=== PATIENT | male | born 2000 | race Caucasian/White ===

== ENCOUNTER 2021-01-30 00:58 | Inpatient (IN) | payer MEDICAID, OTHER ==
--- NOTE | 2021-01-30 01:35 | ED ---
Psych HPI - General Chief Complaint: Psychiatric Symptoms Stated Complaint: Mental Health Time Seen by Provider: 01/30/21 01:01 Source: patient Mode of arrival: EMS - History of Present Illness MD Complaint: feels depressed -: week(s) History of same: Yes Quality: constant Improves With: none Worsens With: none Context: recent alcohol abuse Associated Symptoms: denies other symptoms - Related Data Previous Rx's Medication Instructions Recorded Levant Carbonate 300 mg PO QAM 30 Days cap 02/03/21 Levant Carbonate 450 mg PO HS 30 Days capsule 02/03/21 Nicotine 14Mg/24Hr Patch [Habitrol] 1 patch TRANSDERM DAILY 30 Days 02/03/21 patch QUEtiapine [SEROquel] 100 mg PO HS 30 Days tab 02/03/21 Allergies Allergy/AdvReac Type Severity Reaction Status Date / Time No Known Allergies Allergy Verified 01/30/21 01:09 Review of Systems ROS Statement: Those systems with pertinent positive or pertinent negative responses have been documented in the HPI. ROS Other: All systems not noted in ROS Statement are negative. Constitutional: Denies: fever, chills Respiratory: Denies: cough, dyspnea Cardiovascular: Denies: chest pain, edema Gastrointestinal: Denies: abdominal pain, vomiting, diarrhea Genitourinary: Denies: dysuria, hematuria Musculoskeletal: Denies: back pain Skin: Denies: rash Neurological: Denies: headache Psychiatric: Reports: depression, suicidal thoughts. Denies: auditory hallucinations, visual hallucinations, homicidal thoughts Past Medical History Past Medical History: No Reported History History of Any Multi-Drug Resistant Organisms: None Reported Past Surgical History: No Surgical Hx Reported Past Psychological History: Bipolar, Depression Smoking Status: Current every day smoker Past Alcohol Use History: Daily Past Drug Use History: Marijuana General Exam Limitations: no limitations General appearance: alert, in no apparent distress Head exam: Present: atraumatic, normocephalic Eye exam: Present: normal appearance. Absent: scleral icterus, conjunctival injection Neck exam: Present: normal inspection Respiratory exam: Present: normal lung sounds bilaterally. Absent: respiratory distress, wheezes, rales, rhonchi, stridor Cardiovascular Exam: Present: regular rate, normal rhythm, normal heart sounds. Absent: systolic murmur, diastolic murmur, rubs, gallop GI/Abdominal exam: Present: soft. Absent: distended, tenderness, guarding, rebound, rigid Extremities exam: Present: normal inspection, normal capillary refill. Absent: pedal edema, calf tenderness Back exam: Present: normal inspection. Absent: CVA tenderness (R), CVA tenderness (L) Neurological exam: Present: alert Psychiatric exam: Present: depressed. Absent: agitated, anxious, flat affect, manic, homicidal ideation Skin exam: Present: warm, dry, intact, normal color. Absent: rash Course Vital Signs 01/30/21 01/30/21 01:06 04:00 Temperature 98.1 F Pulse Rate 89 57 L Respiratory 16 16 Rate Blood Pressure 127/79 109/64 O2 Sat by Pulse 98 97 Oximetry Medical Decision Making - Lab Data Result diagrams: 01/30/21 06:12 01/30/21 06:12 Lab Results 01/30/21 01/30/21 01/30/21 Range/Units 03:09 03:09 03:09 Urine Color Colorless Urine Appearance Clear (Clear) Urine pH 6.5 (5.0-8.0) Ur Specific [place] 1.005 (1.001-1.035) Urine Protein Negative (Negative) Urine Glucose (UA) Negative (Negative) Urine Ketones Negative (Negative) Urine Blood Negative (Negative) Urine Nitrite Negative (Negative) Urine Bilirubin Negative (Negative) Urine Urobilinogen <2.0 (<2.0) mg/dL Ur Leukocyte Esterase Negative (Negative) Urine Opiates Screen Not Detected (NotDetected) Ur Oxycodone Screen Not Detected (NotDetected) Urine Methadone Screen Not Detected (NotDetected) Ur Propoxyphene Screen Not Detected (NotDetected) Ur Barbiturates Screen Not Detected (NotDetected) Urine Barbiturates (Negative) ng/mL U Tricyclic Antidepress Not Detected (NotDetected) Ur Phencyclidine Scrn Not Detected (NotDetected) Ur Amphetamine Screen (Negative) ng/mL Ur Amphetamines Screen Not Detected (NotDetected) U Methamphetamines Scrn Not Detected (NotDetected) U Benzodiazepines Scrn Not Detected (NotDetected) Urine Cocaine Screen Not Detected (NotDetected) U Cannabinoids Screen (Negative) ng/mL U Marijuana (THC) Screen Detected H (NotDetected) Urine Alcohol (Negative) mg/dL Coronavirus (PCR) Not Detected (Not Detectd) 01/30/21 Range/Units 03:09 Urine Color Urine Appearance (Clear) Urine pH (5.0-8.0) Ur Specific [place] (1.001-1.035) Urine Protein (Negative) Urine Glucose (UA) (Negative) Urine Ketones (Negative) Urine Blood (Negative) Urine Nitrite (Negative) Urine Bilirubin (Negative) Urine Urobilinogen (<2.0) mg/dL Ur Leukocyte Esterase (Negative) Urine Opiates Screen Negative (NotDetected) Ur Oxycodone Screen (NotDetected) Urine Methadone Screen Negative (NotDetected) Ur Propoxyphene Screen Negative (NotDetected) Ur Barbiturates Screen (NotDetected) Urine Barbiturates Negative (Negative) ng/mL U Tricyclic Antidepress (NotDetected) Ur Phencyclidine Scrn Negative (NotDetected) Ur Amphetamine Screen Negative (Negative) ng/mL Ur Amphetamines Screen (NotDetected) U Methamphetamines Scrn (NotDetected) U Benzodiazepines Scrn Negative (NotDetected) Urine Cocaine Screen Negative (NotDetected) U Cannabinoids Screen Positive A (Negative) ng/mL U Marijuana (THC) Screen (NotDetected) Urine Alcohol Positive A (Negative) mg/dL Coronavirus (PCR) (Not Detectd) Disposition Clinical Impression: Mood disorder Disposition: ADMITTED IP TO THIS HOSP Condition: Fair Is patient prescribed a controlled substance at d/c from ED?: No
[2021-01-30] MEDS ORDERED: MAGNESIUM HYDROXIDE 2,400 MG/10 ML CUP PO PRN (04:00)
[2021-01-30] MEDS ORDERED: MAG HYDROX/AL HYDROX/SIMETH 30 ML CUP PO PRN (04:00)
[2021-01-30] MEDS ORDERED: ACETAMINOPHEN TAB 325 MG TAB PO PRN (04:00)
[2021-01-30] MEDS ORDERED: LORazepam 2 MG/ML INJ IM PRN (04:08)
[2021-01-30] MEDS ORDERED: HALOPERIDOL LACTATE 5 MG/ML 1 ML VIAL IM PRN (04:09)
[2021-01-30 04:17] LABS: Amphetamine Screen,Urine Not Detected (NotDetected); Barbiturate Screen,Urine Not Detected (NotDetected); Benzodiazepines Screen,Urine Not Detected (NotDetected); Cocaine Screen,Urine Not Detected (NotDetected); Methadone Screen, Urine Not Detected (NotDetected); Opiate Screen,Urine Not Detected (NotDetected); Oxycodone Screen, Urine Not Detected (NotDetected); Phencyclidine Screen,Urine Not Detected (NotDetected); Tricyclic Antidepressant,Urine Not Detected (NotDetected); Urn Cannabinoid Scrn Detected (NotDetected)
[2021-01-30 07:08] LABS: Basophils % (A) 1 %; Eosinophils # (A) 0.1 k/uL (0-0.7); Eosinophils % (A) 1 %; HCT 44.4 % (39.0-53.0); HGB 14.8 gm/dL (13.0-17.5); Lymphocytes # (A) 2.6 k/uL (1.0-4.8); Lymphocytes % (A) 32 %; MCH 29.2 pg (25.0-35.0); MCHC 33.3 g/dL (31.0-37.0); MCV 87.7 fL (80.0-100.0); Mean Platelet Volume 8.2; Monocytes # (A) 0.5 k/uL (0-1.0); Monocytes % (A) 6 %; Neutrophils # (A) 4.9 k/uL (1.3-7.7); Neutrophils % (A) 59 %; Platelet Count 191 k/uL (150-450); RBC 5.06 m/uL (4.30-5.90); RDW 12.5 % (11.5-15.5); WBC 8.2 k/uL (4.0-11.0)
[2021-01-30 07:24] LABS: ALT 14 U/L (4-49); AST 23 U/L (17-59); African American GFR (CKD) >90 (>60 ml/min/1.73 sqM); Albumin 4.3 g/dL (3.5-5.0); Alkaline Phosphatase 49 U/L (38-126); Anion Gap 9 mmol/L; Blood Urea Nitrogen 7 mg/dL (9-20); Calcium 9.5 mg/dL (8.4-10.2); Carbon Dioxide 28 mmol/L (22-30); Chloride 106 mmol/L (98-107); Cholesterol 149 mg/dL (<200); Glucose 84 mg/dL (74-99); HDL Cholesterol 44 mg/dL (40-60); LDL Cholesterol,Calculated 89 mg/dL (0-99); Non-African American GFR(CKD) >90 (>60 ml/min/1.73 sqM); Potassium 4.4 mmol/L (3.5-5.1); Sodium 143 mmol/L (137-145); Triglycerides 80 mg/dL (<150)
[2021-01-30] MEDS: NICOTINE 14MG/24HR PATCH TRANSDERM SCH ×3 (07:58→09:17)
[2021-01-30 08:14] LABS: Bilirubin, Delta 0.1 mg/dL (0.0-0.2); Bilirubin,Unconjugated 0.3 mg/dL (0.0-1.1); Total Bilirubin 0.4 mg/dL (0.2-1.3)
[2021-01-30] MEDS ORDERED: LITHIUM CARBONATE 300 MG CAP PO STA (11:11)
[2021-01-30] MEDS: LORazepam 1 MG TAB PO PRN ×2 (11:51→21:13)
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
[2021-01-30 15:47] LABS: Hemoglobin A1C 4.7 % (4.0-6.0)
[2021-01-30 15:59] VITALS: BMI 18.2
[2021-01-30] MEDS: LITHIUM CARBONATE 300 MG CAP PO SCH (21:11)
[2021-01-30] MEDS: QUEtiapine 100 MG TAB PO SCH (21:11)
[2021-01-30 22:31] LABS: Appearance,Urine Clear (Clear); Bilirubin,Urine Negative (Negative); Blood,Urine Negative (Negative); Color,Urine Colorless; Glucose,Urine (UA) Negative (Negative); Ketones,Urine Negative (Negative); Leukocyte Esterase,Urine Negative (Negative); Nitrite,Urine Negative (Negative); PH, Urine 6.5 (5.0-8.0); Protein,Urine Negative (Negative); Specific Gravity,Urine 1.005 (1.001-1.035); Urobilinogen,Urine <2.0 mg/dL (<2.0)
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
[2021-01-31 07:55] LABS: Urine Alcohol Positive (Negative); Urine Barbiturate Negative (Negative); Urine Cocaine Negative (Negative); Urine Methadone Negative (Negative); Urine Opiates Negative (Negative); Urine Phencyclidine Negative (Negative)
[2021-01-31] MEDS: LITHIUM CARBONATE 300 MG CAP PO SCH ×2 (08:17→21:59)
[2021-01-31] MEDS: PANTOPRAZOLE 40 MG TABLET PO SCH (08:18)
[2021-01-31] MEDS: NICOTINE 14MG/24HR PATCH TRANSDERM SCH (08:18)
[2021-01-31] MEDS: LORazepam 1 MG TAB PO PRN ×2 (14:17→23:43)
--- NOTE | 2021-01-31 16:59 | P.PN ---
Progress Note - Text Progress Note Date: 01/31/21 This patient about his limited to Hospital yesterday but the following diagnoses: Bipolar disorder, unspecified Alcohol use disorder Cannabis use disorder He continues to have the suicidal thoughts. He stated he has had them for years and years. He stated he has been taking his medication including lithium and Seroquel and does not appear to show any side effects of medication. He stated that he feels that he can snap any time but he really can't. He stated that the Seroquel made him tired. He will continue to be maintained on a medication and is other treatment plan.
[2021-01-31] MEDS: QUEtiapine 100 MG TAB PO SCH (23:43)
[2021-02-01] MEDS: NICOTINE 14MG/24HR PATCH TRANSDERM SCH (08:21)
[2021-02-01] MEDS: PANTOPRAZOLE 40 MG TABLET PO SCH (08:21)
[2021-02-01] MEDS: LITHIUM CARBONATE 150 MG CAP PO SCH ×2 (08:21→21:56)
--- NOTE | 2021-02-01 12:59 | P.PN ---
Progress Note - Text Progress Note Date: 02/01/21 This patient stated that he was doing terrible. He stated he feels angry and depressed. He has crying spells. He is unable to sleep and is mostly tired. He speaks in a very low monotonous voice. Patient presented to the hospital on 01/30/2021 with a chief complaint of anger issues and suicidal thoughts for the last 2 weeks. He continues to have severe issues with the mood swings. He stated he feels like breaking things but he knows he cannot because he will get in trouble. Romulo isn't taking the medication. He becomes tearful very easily. He has psychomotor retardation. He has no insight into his problems. His judgment is impaired because of his depression and mood swings. He will continue to be encouraged to participate in the milieu activities. Patient is totally hopeless and helpless at this time and is being monitored closely.
[2021-02-01] MEDS: LORazepam 1 MG TAB PO PRN ×2 (13:07→21:57)
[2021-02-01] MEDS: QUEtiapine 100 MG TAB PO SCH (21:56)
[2021-02-02] MEDS: LITHIUM CARBONATE 150 MG CAP PO SCH ×3 (08:42→21:02)
[2021-02-02] MEDS: NICOTINE 14MG/24HR PATCH TRANSDERM SCH (08:42)
[2021-02-02] MEDS: PANTOPRAZOLE 40 MG TABLET PO SCH (08:42)
--- NOTE | 2021-02-02 11:47 | P.PN ---
Progress Note - Text Progress Note Date: 02/02/21 Interval History: Patient was seen wandering the hallways and was directable and agreeable to speak with technical writer and editor in the office. The patient reports that over the weekend he had one episode where he felt overwhelmed with anger and emotion but stated that this subsided as the day progressed. He is currently not reporting any suicidal or homicidal ideation, intention, and/or plan. He is denying any paranoia or delusions. Denies any auditory or visual hallucinations. In regards to mood, the patient states that he is able to better control his emotions. He is not reporting any racing thoughts or other significant mood swings aside from that episode over the weekend. He has been adherent with his medications and is not reporting any significant side effects at this time. Snowflake was drawn at 10:15 and was reported to be 1.2. Mental Status Exam: General Appearance: Patient appears to be stated age is alert, directable, and cooperative. Good hygiene and grooming. Behavior: Patient is calmly seated without any agitated behavior. Psychomotor activity appears slightly elevated. Speech: Patient's speech is fluent and nonpressured. Rapid in rate but interruptible. Mood/Affect: Mood is improving mildly, affect is congruent and slightly expansive. Suicidality/Homicidality: Patient denies having any suicidal or homicidal ideation intent or plan. Perceptions: Patient denies any visual hallucinations and denies any auditory hallucinations Though content/process: There is no evidence of any delusional thought content and thought process is linear and goal-directed. Memory and concentration: AOX3, grossly intact for the purposes of this session Judgment and insight: Improving mildly Assessment Bipolar disorder, unspecified Alcohol use disorder Cannabis use disorder Cluster B personality traits Plan: -Patient continues to meet criteria for inpatient psychiatric admission for symptom stabilization and safety. Patient has signed adult voluntary form and medication consent and was placed in patient's chart. Anticipate discharge for tomorrow. -Medications: Continue lithium 300 mg by mouth 3 times a day for mood stabilization Continue Seroquel 100 mg by mouth at bedtime for mood stabilization -When necessary Ativan and Haldol for agitation/aggression. -NRT - nicotine patch -SW on board for discharge planning. Encouraged the patient to participate in milieu.
[2021-02-02] MEDS: LORazepam 1 MG TAB PO PRN (14:49)
[2021-02-02 17:26] VITALS: TEMP 97.3
[2021-02-02] MEDS: QUEtiapine 100 MG TAB PO SCH (21:48)
[2021-02-03] MEDS: NICOTINE 14MG/24HR PATCH TRANSDERM SCH (07:51)
[2021-02-03] MEDS: PANTOPRAZOLE 40 MG TABLET PO SCH (07:52)
[2021-02-03 08:02] VITALS: BP 126/71; PULSE 120
[2021-02-03] MEDS ORDERED: IBUPROFEN 400 MG TAB PO PRN (08:11)
[2021-02-03 08:24] VITALS: RESP 18
--- NOTE | 2021-02-03 09:05 | XR ---
EXAMINATION TYPE: XR chest 2V DATE OF EXAM: 02/03/2021 COMPARISON: None HISTORY: 20-year-old male with chest pain TECHNIQUE: Frontal and lateral views FINDINGS: The cardiomediastinal silhouette, aorta, and pulmonary vasculature are within normal limits. Lungs an d pleural spaces are clear. IMPRESSION: No acute cardiopulmonary process.
[2021-02-03] MEDS: LITHIUM CARBONATE 150 MG CAP PO SCH ×2 (09:30→15:44)
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
[2021-02-03] MEDS ORDERED: PANTOPRAZOLE 40 MG TABLET PO SCH (17:30)
== END 2021-02-03 15:45 | disposition home or self-care (01) | DRG 885 ==
LOC: EC 00:58 → 3MHU 03:51
PROVIDERS: ADMIT Psychiatry & Neurology Psychiatry; ATTEND Psychiatry & Neurology Psychiatry
DX: F31.30 Bipolar disorder, current episode depressed, mild or moderate severity, unspecified (principal); R45.851 Suicidal ideations; Z20.822 Contact with and (suspected) exposure to COVID-19; F60.89 Other specific personality disorders; F10.10 Alcohol abuse, uncomplicated; F12.10 Cannabis abuse, uncomplicated; K21.9 Gastro-esophageal reflux disease without esophagitis; M94.0 Chondrocostal junction syndrome [Tietze]; F41.9 Anxiety disorder, unspecified; G47.9 Sleep disorder, unspecified; R25.1 Tremor, unspecified; F17.210 Nicotine dependence, cigarettes, uncomplicated; Z71.6 Tobacco abuse counseling; Z79.899 Other long term (current) drug therapy; Z56.0 Unemployment, unspecified; Z87.820 Personal history of traumatic brain injury
CPT/HCPCS: 71046; 80053; 80061; 80178; 80306; 81003; 82075; 82248; 83036; 84443; 85025; 87635; 93005; 99285